=== PATIENT | male | born 1965 | race Asian ===

== ENCOUNTER 2019-05-19 14:20 | Emergency (ER) | payer SELFPAY ==
[~2019-05-19] VITALS: Ht 165.1 cm; Wt 90.7 kg
[2019-05-19] MEDS ORDERED: CALCIUM CHLOR(10%) 100MG/ML 10ML SYRINGE IV ONE (14:21)
[2019-05-19] MEDS ORDERED: EPINEPHrine HCL 1 MG/10 ML SYRG IV ONE (14:21)
== END 2019-05-19 17:39 | disposition home or self-care (01) ==
LOC: EDBD 14:20 → ER 14:20
DX: I46.9 Cardiac arrest, cause unspecified (principal)
CPT/HCPCS: 92950; 99285; J0171